=== PATIENT | female | born 1970 | race Caucasian/White ===

== ENCOUNTER 2016-10-08 19:17 | Emergency (ER) | payer MEDICARE, MEDICAID ==
[~2016-10-08 19:17] MED LIST: ALBUTEROL17 GM INH; ALIGN4 MG PO; ATIVAN1 MG PO; BENTYL20 MG PO; BRINTELLIX20 M1 PO; BUSPIRONE HCL10 M2 PO; CATAFLAM50 MG PO; CLARITIN10 M8 PO; CLARITIN10 MG; CLARITIN10 MG PO; CLEOCIN HCL PO; COMPAZINE10 M PO; CRESTOR10 MG PO; CRESTOR40 MG PO; CULTURELLE1 EAC1 PO; CYMBALTA30 MG PO; CYMBALTA60 MG PO; DARVON65 MG PO; DEPOPROVERA; DIFLUCAN150 M1 PO; DIFLUCAN150 MG PO; DIFLUCAN200 M1 PO; DOXYCYCLINE HY100 M3 PO; ERYTHROMYCIN OPH OP; ERYTHROMYCIN3.5 GM LEFT EYE; ESTRACE0.5 M2 PO; FARXIGA10 M1 PO; FARYDAK10 MG PO; FLAGYL500 M1 PO; FLEXERIL10 MG PO; FLONASE16 GM; GARAMYCIN5 ML OP; GLUCOPHAGE500 MG PO; HYDROCODONE/APA1 TAB; HYDROCODONE/APAP; INVEGA6 MG/BOTTL PO; JANUVIA100 M1 PO; KEPPRA250 MG PO; LAMICTAL100 M1 PO; LAMICTAL150 M1 PO; LEVAQUIN750 MG PO; LEVEMIR100 UNITS/ SC; LEXAPRO; LEXAPRO20 M2 PO; LIPITOR80 MG PO; LORCET 10/650 T1 TAB; LORCET 10/650 T1 TAB PO; LOVAZA1 GM PO; MEDROL4 MG/DOSE- PO; MILK OF MA400 MG/5 M PO; MIRALAX17 G1 PO; MONISTAT; NORCO 5-325 TA1 EACH PO; NORCO 5/325 TAB1 TAB PO; NUVIGIL250 MG PO; OMEPRAZOLE20 M3 PO; OMNICEF300 MG PO; PERCOCET 5-3251 EACH PO; PERCOCET 5/3251 TAB PO; PHENTERMINE HCL30 MG PO; PHENTERMINE PO; PRISTIQ50 MG; PROMETHAZINE25 MG PO; Phenergan PO; SAPHRIS PO; SAPHRIS10 MG SL; SINGULAIR10 MG PO; TYLENOL325 MG PO; ULTRAM50 M1 PO; ULTRAM50 MG PO; VALIUM10 M1 PO; VALIUM5 MG PO; VIBRAMYCIN100 M1 PO; VIBRAMYCIN100 MG PO; VICTOZA 2-0.6 MG/0.1 SC; VITAMIN B121000 MCG PO; VITAMIN C1000 M1 PO; VITAMIN D350000 UNI1 PO; VITAMIN D50000 UNIT PO; WELCHOL625 MG PO; WELLBUTRIN XL300 MG; ZITHROMAX250 MG PO; ZITHROMAX250MG Z-PAK PO; ZOCOR40 M1 PO; ZOCOR40 MG; ZOCOR40 MG PO; ZOFRAN ODT4 MG/UDTAB PO; ZOFRAN ODT8 MG/TAB PO; ZOFRAN4 M1 PO; [UNRECOGNIZED DRUG - OTHER]
[2016-10-08] MEDS ORDERED: DIFLUCAN100 M1 PO (19:45)
[2016-10-08] MEDS ORDERED: SINGULAIR10 M1 PO (19:52)
[2016-10-08] MEDS ORDERED: XANAX0.5 M1 PO (19:57)
[2016-10-08] MEDS ORDERED: LATUDA80 M1 PO (19:57)
[2016-10-08] MEDS ORDERED: DEXILANT60 M1 PO (19:58)
[2016-10-08] MEDS ORDERED: VYVANSE30 M1 PO (19:59)
[2016-10-08] MEDS ORDERED: VITAMIN D250000 UNI1 PO (20:03)
[2016-10-10] MEDS ORDERED: PERCOCET 5-3251 EACH PO (08:17)
== END 2016-10-08 20:37 ==
LOC: EDMED 19:17
PROC: 2W3JX1Z Immobilization of Right Finger using Splint (ICD-10-PCS; principal; 2016-10-08)
DX: S62.604A Fracture of unspecified phalanx of right ring finger, initial encounter for closed fracture (principal); W50.0XXA Accidental hit or strike by another person, initial encounter

== ENCOUNTER 2016-10-10 08:22 | Emergency (ER) | payer MEDICARE, MEDICAID ==
[~2016-10-10 08:22] MED LIST changes: +DEXILANT60 M1 PO; +DIFLUCAN100 M1 PO; +LATUDA80 M1 PO; +SINGULAIR10 M1 PO; +VITAMIN D250000 UNI1 PO; +VYVANSE30 M1 PO; +XANAX0.5 M1 PO
== END 2016-10-10 08:23 ==
LOC: EDMED 08:22
DX: S62.606A Fracture of unspecified phalanx of right little finger, initial encounter for closed fracture (principal); E11.9 Type 2 diabetes mellitus without complications; F41.9 Anxiety disorder, unspecified; F32.9 Major depressive disorder, single episode, unspecified; Z88.5 Allergy status to narcotic agent; Z79.4 Long term (current) use of insulin; Z79.899 Other long term (current) drug therapy; X58.XXXA Exposure to other specified factors, initial encounter